=== PATIENT | male | born 1945 | race Caucasian/White ===

== ENCOUNTER 2025-10-18 10:21 | Emergency (ER) | payer MEDICARE, SELFPAY ==
[2025-10-18] VITALS (10 sets, daily range): BP systolic 121–132; BP diastolic 51–62; PULSE 59–64; RESP 13–17; TEMP 36.4; O2SAT 91–96; BMI 31.0
--- NOTE | 2025-10-18 10:27 | ED.VIS.GI ---
HPI HPI - GI History of Present Illness Chief Complaint: GI Bleed Narrative Narrative: Patient is an 80-year-old male presenting to the emergency department for dark colored stool this morning. Patient has a past medical history of CAD, TX, esophageal reflux, COPD, CKD. Patient is on Eliquis. Patient initially had constipation for the past 4 to 5 days. He states that he does have irregular bowel movements stating that this is baseline for him going from constipation to diarrhea to normal bowel movements frequently. Patient states that he does take iron supplementation. He states that he did not take anything to help him have a bowel movement. Reports this morning around 730 to 8 AM he was trying to have a bowel movement and had dark-colored soft stool. Denies any diarrhea. Denies any painful bowel movement. Denies any bright red blood that he noticed. Denies any chest pain, shortness of breath, lightheadedness or dizziness. He denies any abdominal pain, dysuria or hematuria. States that this has never happened to him before. He reports he had a EGD done about 1 year ago for what he thinks was a polyp. No recent alcohol or NSAID use. He is visiting from [place]. [facility] Medical History Chronic kidney disease COPD (chronic obstructive pulmonary disease) Diabetes Home Medications ?Medication ?Instructions ?Recorded ?Last Taken ?Type acetaminophen 500 mg capsule 500 mg PO Q6H PRN pain 10/18/25 Unknown History amlodipine 5 mg tablet 5 mg PO DAILY blood pressure 10/18/25 10/18/25 History apixaban 2.5 mg tablet (Eliquis) 2.5 mg PO BID heart 10/18/25 10/18/25 History ascorbic acid (vitamin C) 250 mg 500 mg PO DAILY supplement 10/18/25 10/17/25 History tablet atorvastatin 40 mg tablet 40 mg PO DAILY cholesterol 10/18/25 10/17/25 History carvedilol 12.5 mg tablet 12.5 mg PO BID heart 10/18/25 10/18/25 History cetirizine 10 mg capsule (Allergy 10 mg PO DAILY allergies 10/18/25 10/18/25 History Relief (cetirizine)) diphenhydramine HCl 25 mg capsule 25 mg PO QHS allergies 10/18/25 10/17/25 History (Benadryl) empagliflozin 25 mg tablet 25 mg PO DAILY heart 10/18/25 10/18/25 History (Jardiance) esomeprazole magnesium 40 mg 40 mg PO DAILY gerd 10/18/25 10/18/25 History capsule,delayed release ferrous sulfate 325 mg (65 mg 325 mg PO DAILY supplement 10/18/25 10/18/25 History iron) tablet (FeroSul) fluticasone 250 mcg-salmeterol 50 1 ea inhalation BID sob 10/18/25 10/17/25 History mcg/dose blistr powdr for inhalation (Wixela Inhub) hydralazine 25 mg tablet 25 mg PO BID blood pressure 10/18/25 10/18/25 History isosorbide mononitrate 120 mg 120 mg PO DAILY heart 10/18/25 10/18/25 History tablet,extended release 24 hr lisinopril 5 mg tablet 5 mg PO DAILY blood pressure 10/18/25 10/18/25 History nitroglycerin 0.4 mg sublingual 0.4 mg sublingual PRN chest pain 10/18/25 10/04/25 History tablet prevagen xtra strength 1 ea PO DAILY supplement 10/18/25 10/17/25 History ranolazine 500 mg tablet,extended 500 mg PO BID heart 10/18/25 10/18/25 History release,12 hr tiotropium bromide 18 mcg capsule 1 cap inhalation DAILY sob 10/18/25 10/17/25 History with inhalation device tirzepatide 2.5 mg/0.5 mL 2.5 mg subcut QWEEK blood sugar 10/18/25 10/14/25 History subcutaneous pen injector (Layla) torsemide 20 mg tablet 20 mg PO QWEEK edema 10/18/25 10/13/25 History Allergy/AdvReac Type Severity Reaction Status Date / Time No Known Allergies Allergy Verified 10/18/25 10:26 Surgical History Cholecystotomy with removal of foreign body from gallbladder performed Social History Smoking Status: Former smoker ROS ROS ED ROS Narrative see HPI EXAM Physical Exam Narrative Exam Narrative: Vital signs: Reviewed General: Alert and orientedx3. No acute distress. Well-appearing, nontoxic. HEENT: Head is normocephalic and atraumatic, sinuses nontender, pupils equal round and reactive. Nares are patent. Oropharynx and throat exams normal. Neck: Supple without lymphadenopathy nontender Cardiovascular: Regular rate and rhythm, no murmurs. No rubs or gallops. Normal S1 and S2 Respiratory: Clear to auscultation bilaterally. No wheezes, rales, rhonchi Abdominal: Soft and nontender. Normal bowel sounds. No guarding or rebound. Nonsurgical abdomen : Done with RN despatch clerk at bedside. There is no hemorrhoids or fissures noted. There is dark-colored stool on rectal exam. Does not appear grossly melanotic and no bright red blood. Extremities: No tenderness. No bruising. Normal range of motion. Normal sensation. Skin: No rash or redness. The rest of the physical exam is unremarkable Const Vital Signs: 10/18/25 10:23 10/18/25 11:17 10/18/25 11:30 Temperature 97.5 F L Temperature Source Oral Pulse Rate 64 Respiratory Rate 16 Blood Pressure 126/51 H 121/62 H Blood Pressure Mean 76 77 Pulse Ox 96 91 Oxygen Delivery Method Room Air 10/18/25 11:30 10/18/25 11:32 10/18/25 11:55 Temperature Temperature Source Pulse Rate Respiratory Rate Blood Pressure 121/62 H Blood Pressure Mean 77 Pulse Ox 93 95 Oxygen Delivery Method 10/18/25 12:00 10/18/25 12:15 10/18/25 12:30 Temperature Temperature Source Pulse Rate 60 61 59 L Respiratory Rate 14 17 13 Blood Pressure Blood Pressure Mean Pulse Ox 95 95 95 Oxygen Delivery Method 10/18/25 12:41 10/18/25 12:45 Temperature 97.5 F L Temperature Source Pulse Rate 60 60 Respiratory Rate 14 14 Blood Pressure 132/62 H 132/62 H Blood Pressure Mean 83 85 Pulse Ox 92 92 Oxygen Delivery Method MDM MDM MDM Narrative Medical decision making narrative: Patient is a 80-year-old male presenting to the emergency department for constipation and dark-colored stool. Patient was seen and examined. Vitals are stable. Patient resting in bed comfortably in no acute distress. Fecal occult sent. Labs to assess for anemia was sent. CT abdomen pelvis ordered. CBC with no leukocytosis and very mild anemia of 12.7. CMP with BUN of 34 and creatinine of 1.71, patient does have a history of CKD. I have no prior labs to compare to and patient and state that they do not have any access to any type of electronic medical record to review the list. They state that the kidney levels sound like they are around his baseline. CT the abdomen pelvis shows no acute abnormalities. There were incidental findings of a lung nodule, benign renal cyst. These were discussed with the patient and at bedside and they are aware of both. He states that the lung nodule is being followed outpatient. Patient's blood pressure has been stable the entire time he has been here. He has a stable hemoglobin. He is asymptomatic. He does take iron supplements and this may be the cause of his dark-colored stool however his fecal occult is positive. I think the patient is appropriate for outpatient follow-up. He is on Eliquis and is higher risk however I also discussed with him that I think he should stay on the Eliquis given the benefits of it outweighing the risks. They report they are going back to [place] tomorrow and they recommended follow-up with PCP and GI doctor that he already follows with as soon as possible. Explained that if anything changes in the meantime including abdominal pain, worsening bleeding, fevers or vomiting that he should return to the emergency department immediately. Patient and feel comfortable with the plan. All questions answered. Patient discharged from the Emergency Department. I do not feel that the patient's evaluation reveals any acute reason for admission at this time. I instructed them to either follow-up with their primary care physician or promptly return to the Emergency Department for reevaluation should symptoms worsen or new symptoms develop. I explained what symptoms would indicate the need to return to the emergency department. Shared decision making was used. The patient voiced understanding of the treatment plan and is agreeable with it. Clinical impression Melanotic stool Lung nodule Renal cyst History & Record Review Discussion w/independent historian: Patient and Significant other Lab Data Attestation: I reviewed the patient's lab results. Labs: Laboratory Results - last 24 hr 10/18/25 10:49 WBC 8.9 RBC 4.41 L Hgb 12.7 L Hct 39.6 L MCV 89.8 MCH 28.8 MCHC 32.1 RDW Std Deviation 50.1 H RDW Coeff of Monika 15.4 H Plt Count 191 MPV 11.6 Immature Gran % (Auto) 0.300 Neut % (Auto) 78.1 H Lymph % (Auto) 10.3 L [place] % (Auto) 8.1 Eos % (Auto) 2.9 Baso % (Auto) 0.3 Absolute Neuts (auto) 6.9 Absolute Lymphs (auto) 0.91 Nucleated RBC % 0 PT 15.4 H INR 1.2 APTT 32.1 Sodium 141 Potassium 4.0 Chloride 105 Carbon Dioxide 24.5 Anion Gap 12 BUN 34 H Creatinine 1.71 H Estim Creat Clear Calc 37.93 L Est GFR (MDRD) Non-Af 39 L BUN/Creatinine Ratio 20.1 H Glucose 127 H Calcium 9.0 Total Bilirubin 0.58 AST 29 ALT 22 Alkaline Phosphatase 86 Total Protein 6.9 Albumin 3.7 Globulin 3.2 Albumin/Globulin Ratio 1.1 Radiography Diagnostic Testing: Clinical Impression(s) from Imaging Studies Abdomen/Pelvis CT 10/18/25 10:39 IMPRESSION: 1. 10 mm nodule left lower lobe. ACR Fleischner Society recommendations (MacMahon, et al. Radiology 2017; 284(1): 228-43) suggest the following: For patients with high or low risk of lung cancer, follow-up chest CT at 3 months. If stable, additional follow-up chest CT at 18 to 24 months. Alternatively (or additionally) PET/CT or tissue sampling could be performed. 2. Cholecystectomy 3. Nonobstructing left renal calculi. 4. Benign right renal cysts. Bosniak 1. No follow-up required. 5. Small sliding hiatus hernia. Diverticulosis without diverticulitis. Modest amount of formed stool in the rectum. Consider constipation. 6. IVC filter Reading Location: [id number] Discharge Plan Triage Chief Complaint: GI Bleed ED Provider: Faby Garza Dx/Rx/DC Orders Clinical Impression: Melanotic stools Instructions: GI Bleeding Causes and Tests, ED Upper GI Bleeding (Stable) Prescriptions: No Action atorvastatin 40 mg tablet 40 mg PO DAILY fluticasone propion-salmeterol [Wixela Inhub] 250-50 mcg/dose blister with device 1 ea INHALATION BID carvedilol 12.5 mg tablet 12.5 mg PO BID torsemide 20 mg tablet 20 mg PO QWEEK Patient Comments: pt takes on Sundays. pt states if he has swelling in feet the dr told him to take an extra dose hydralazine 25 mg tablet 25 mg PO BID amlodipine 5 mg tablet 5 mg PO DAILY isosorbide mononitrate 120 mg tablet extended release 24 hr 120 mg PO DAILY esomeprazole magnesium 40 mg capsule,delayed release(DR/EC) 40 mg PO DAILY nitroglycerin 0.4 mg tablet, sublingual 0.4 mg sublingual PRN lisinopril 5 mg tablet 5 mg PO DAILY tiotropium bromide 18 mcg capsule, w/inhalation device 1 cap inhalation DAILY ranolazine 500 mg tablet extended release 12 hr 500 mg PO BID Eliquis 2.5 mg tablet 2.5 mg PO BID Jardiance 25 mg tablet 25 mg PO DAILY Mounjaro 2.5 mg/0.5 mL pen injector 2.5 mg subcut QWEEK Patient Comments: pt gets this every Tuesday diphenhydramine HCl [Benadryl] 25 mg capsule 25 mg PO QHS acetaminophen 500 mg capsule 500 mg PO Q6H PRN (Reason: pain) Allergy Relief (cetirizine) 10 mg capsule 10 mg PO DAILY prevagen xtra strength 1 ea PO DAILY ascorbic acid (vitamin C) 250 mg tablet 500 mg PO DAILY Patient Comments: pt uses gummies ferrous sulfate [FeroSul] 325 mg (65 mg iron) tablet 325 mg PO DAILY Primary Care Provider: CAMERON HENNING Referrals: [facility] Doctor,Out of [Non-Staff, Medical] Activity Restrictions/Additional Instructions: As discussed, if you develop any bright red blood when you are having a bowel movement, abdominal pain, nausea, vomiting, lightheadedness or dizziness you need to return immediately. I would continue taking your Eliquis. You need to follow-up with your GI doctor and primary care doctor as soon as you return to [place]. If anything changes in the meantime please do not hesitate to return here for further evaluation. Also as discussed your CT showed the 10 mm nodule in your left lower lung that you need to follow-up on in 3 months. Print Language: Setswana Disposition Disposition: Home, Self Care Discharge Date/Time: 10/18/25 12:52
--- NOTE | 2025-10-18 10:39 | CT_ITS ---
PROCEDURE: ABDOMEN/PELVIS W IV CONT ONLY 10/18/2025 REASON FOR EXAM: CONSTIPATION, MELANOTIC STOOL TODAY TECHNIQUE: Procedure Code: [id number] Modality: CT Procedure: ABDOMEN/PELVIS W IV CONT ONLY Coronal and Sagittal reconstruction series were provided. CONTRAST: Isovue-300 VOLUME: 91 mL One or more dose reduction techniques were used (e.g., Automated exposure control, adjustment of the mA and/or kV according to patient size, use of iterative reconstruction technique. RADIATION DOSE SUMMARY: CTDlvol: 34 mGy DLP: 1196 mGycm COMPARISON: None FINDINGS: Lung bases: Dependent atelectasis and/or scarring. 10 mm nodule left lower lobe. Liver: Liver is non cirrhotic. Within segment 6 there is a tiny flash filling hemangioma or shunt on image 43 measuring less than a cm. This is benign. Gallbladder: Cholecystectomy Spleen: Numerous calcified granulomas are shown within the spleen. Pancreas: Normal Adrenals: Normal Kidneys: Right kidney and collecting system appear normal except for a subcentimeter simple cyst at the anterior right upper pole. Sub 5 mm cyst right lower pole is statistically benign. Coil mass is seen overlying the left upper pole with some associated artifact. No collecting system dilation is seen. Some calculi are shown of the left mid to lower pole. One measures 5.8 mm in the other 5.7 mm. Dilation. No collecting system Bladder: Unremarkable Reproductive Organs: Some dystrophic calcifications are seen in the otherwise unremarkable prostate Bowel: Sliding hiatus hernia is small. Small bowel is normal. Scattered colonic diverticula are present without diverticulitis. Large amount of formed stool is seen in the rectum particularly at the rectal vault. Appendix: Normal Lymph nodes: None appear Vasculature: Moderate atherosclerotic plaque is present. IVC filter is present. Peritoneum / Retroperitoneum: No free air, free fluid or mass. Bones: Ankylosis of the right SI joint. Lower lumbar facet hypertrophy is [id number]. Mild bridging osteophytes lower thoracic spine. Bilateral inguinal hernia repairs. CT/Abdomen/Pelvis W IV Cont ONLY IMPRESSION: 1. 10 mm nodule left lower lobe. ACR Fleischner Society recommendations (MacChe gonzales, et al. Radiology 2017; 284(1): 228-43) suggest the following: For patients with high or low risk of lung cancer, follo w-up chest CT at 3 months. If stable, additional follow-up chest CT at 18 to 24 months. Alternatively (or additionally) PET/CT o r tissue sampling could be performed. 2. Cholecystectomy 3. Nonobstructing left renal calculi. 4. Benign right renal cysts. Bosniak 1. No follow-up required. 5. Small sliding hiatus hernia. Diverticulosis without diverticulitis. Modes t amount of formed stool in the rectum. Consider constipation. 6. IVC filter Reading Location: [id number]
[2025-10-18 10:59] LABS: Hematocrit 39.6 % (40-54); Hemoglobin 12.7 g/dL (13.0-16.5); Immature Granulocytes Count 0.030 X10^3/uL (0.0-0.0); Mean Corp Hgb Conc 32.1 g/dL (32-36); Mean Corpuscular Volume 89.8 fL (80-94); Mean Platelet Vol. 11.6 fl (6.2-12.0); NRBC Flagged by Analyzer 0 % (0-5); Platelet Count 191 K/mm3 (150-450); RBC Distribution Width CV 15.4 % (11.6-14.6); RBC Distribution Width SD 50.1 fl (35.1-43.9); Red Blood Count 4.41 M/mm3 (4.6-6.2); White Blood Count 8.9 K/mm3 (4.4-11.0)
[2025-10-18 11:08] LABS: Prothrombin Time (Protime)PT. 15.4 SECONDS (11.7-14.9)
[2025-10-18 11:09] LABS: Partial Thromboplast Time 32.1 Seconds (24.1-36.2)
[2025-10-18 11:20] LABS: AST(SGOT) 29 U/L (<=37); Alanine Aminotransfer ALT/SGPT 22 U/L (<=46); Albumin, Serum 3.7 g/dL (3.4-4.8); Alkaline Phosphatase 86 U/L (40-129); Anion Gap 12 (5-15); BUN 34 mg/dL (4-19); BUN/Creat Ratio 20.1 RATIO (10-20); Calcium,Total 9.0 mg/dL (7.6-11.0); Carbon Dioxide 24.5 mmol/L (21.0-32.0); Chloride 105 mmol/L (98-108); Estimated Creatinine Clearance 37.93 ml/min (50-250); Globulin 3.2 g/dL (2.2-4.2); Glucose 127 mg/dL (70-99); Potassium 4.0 mmol/L (3.3-5.1)
== END 2025-10-18 12:52 | disposition home or self-care (01) ==
PROVIDERS: Emergency Provider Student in an Organized Health Care Education/Training Program; Visit Provider Student in an Organized Health Care Education/Training Program
DX: K92.1 Melena (principal); J44.9 Chronic obstructive pulmonary disease, unspecified; E11.22 Type 2 diabetes mellitus with diabetic chronic kidney disease; Z87.891 Personal history of nicotine dependence; N28.1 Cyst of kidney, acquired; Z79.01 Long term (current) use of anticoagulants; I25.2 Old myocardial infarction; N18.9 Chronic kidney disease, unspecified; R91.1 Solitary pulmonary nodule; I25.10 Atherosclerotic heart disease of native coronary artery without angina pectoris; K21.9 Gastro-esophageal reflux disease without esophagitis; Z79.899 Other long term (current) drug therapy; Z79.84 Long term (current) use of oral hypoglycemic drugs; Z79.51 Long term (current) use of inhaled steroids; Z79.85 Long-term (current) use of injectable non-insulin antidiabetic drugs
CPT/HCPCS: 74177; 80053; 82274; 85025; 85610; 85730; 99284; Q9967; A4216